=== PATIENT | female | born 1995 | race American Indian/Alaskan Native ===

== ENCOUNTER 2021-05-12 11:04 | Emergency (ER) | payer MEDICAID ==
--- NOTE | 2021-05-12 11:32 | Emergency Department Report ---
ED Female HPI - General Chief complaint: Abdominal Pain Stated complaint: ABD PAIN/12WKS PREG Time Seen by Provider: 05/12/21 11:21 Source: patient Mode of arrival: Ambulatory Limitations: No Limitations - History of Present Illness Initial comments: 26-year-old female with no significant past medical history presents to the hospital with her first reporting abdominal cramps and intermittent sharp right lower quadrant pain worsening last night. Pain moderate in intensity. Worse with palpation. No alleviating factors. Patient is 12 weeks based on LMP February 17 and has not received any imaging during this . She recently moved here from [place] and does not have a [facility] [employer]ATIONS [employer]IST doctor. She reports 1 day of vaginal bleeding noted only when wiping after urination sometime last week that has since resolved. She does not endorse dysuria, flank pain, or fever. Patient is currently taking vitamins - Related Data Previous Rx's Medication Instructions Recorded Last Taken Type Nitrofurantoin Alpine/M-Cryst 100 mg PO Q12HR #14 capsule 05/12/21 Unknown Rx [Macrobid CAP] Allergies Allergy/AdvReac Type Severity Reaction Status Date / Time No Known Allergies Allergy Verified 05/12/21 11:50 ED Review of Systems ROS: Stated complaint: ABD PAIN/12WKS PREG Other details as noted in HPI Comment: All other systems reviewed and negative ED Past Medical Hx - Past Medical History Previous Medical History?: No - Surgical History Past Surgical History?: No - Medications Home Medications: Home Medications Medication Instructions Recorded Confirmed Last Taken Type Nitrofurantoin Alpine/M-Cryst 100 mg PO Q12HR #14 capsule 05/12/21 Unknown Rx [Macrobid CAP] ED Physical Exam - General Limitations: No Limitations - Other Other exam information: General: No acute distress Head: Atraumatic Eyes: normal appearance ENT: Moist mucous membranes Neck: Normal appearance, no midline tenderness Chest: Clear to auscultation bilaterally CV: Regular rate and rhythm Abdomen: Soft, normal bowel sounds, right lower quadrant tenderness, nondistended, no rebound or guarding Back: Normal inspection Extremity: Normal inspection, full range of motion Neuro: Alert O x 3, no facial asymmetry, speech clear, no gross motor sensory deficit Psych: Appropriate behavior Skin: No rash ED Course Vital Signs 05/12/21 05/12/21 11:10 12:17 Temperature 98.5 F Pulse Rate 62 Respiratory 16 Rate Blood Pressure 103/68 O2 Sat by Pulse 100 100 Oximetry ED Medical Decision Making - Lab Data Result diagrams: 05/12/21 11:28 - Radiology Data Radiology results: report reviewed cc: JOE MARCUM MD . OB Ultrasound HISTORY: vag bleeding. 12 weeks preg by dates. TECHNIQUE: Grayscale and color imaging performed. COMPARISON: None FINDINGS: Uterus measures 11.6 x 8.2 x 8.4 cm with intrauterine gestation. Mean sac diameter is 5.4 cm corresponding with an EGA of 11 weeks and 2 days. [place]-rump length is 4.7 cm corresponding with an EGA of 11 weeks and 3 days. Clinical gestational age is reported at 12 weeks and 0 days. Heart rate is 166 bpm. Both ovaries appear normal. No pelvic free fluid. IMPRESSION: Single viable intrauterine gestation as above. - Medical Decision Making 26-year-old female approximately 12 weeks complaining of intermittent r ight lower quadrant pain with recent history of vaginal bleeding. Ultrasound confirms IUP with heart tones. Rh+ therefore RhoGam is not needed. Urine shows white cells with large number epithelial cells therefore likely contaminated however, given status will treat empirically. Outpatient follow-up with [facility] BUSINESS MANAGER provider - Differential Diagnosis Round ligament pain, appendicitis, ovarian cyst, ectopic Critical Care Time: No Critical care attestation.: If time is entered above; I have spent that time in minutes in the direct care of this critically ill patient, excluding procedure time. ED Disposition Clinical Impression: 11 weeks gestation of , Urine WBC increased, Threatened miscarriage Disposition: 01 HOME / SELF CARE / HOMELESS Is pt being admited?: No Does the pt Need Aspirin: No Condition: Stable Instructions: Abdominal Pain (ED), Vaginal Bleeding During , First Trimester, [id number], and Urinary Tract Infection Additional Instructions: Your ultrasound suggest that you are 11 weeks and 2-3 days . Take the medication as prescribed. Take Tylenol as needed for pain. Follow-up with your doctor or doctor/clinic provided. Return if symptoms worsen as indicated by your discharge instructions. Prescriptions: Nitrofurantoin Alpine/M-Cryst [Macrobid CAP] 100 mg PO Q12HR #14 capsule Referrals: RANDY MARTINS MD [Staff Physician] - 3-5 Days Time of Disposition: 12:52
[2021-05-12 11:42] LABS: Basophils # (Auto) 0.1 K/mm3 (0.0-0.1); Basophils % (Auto) 0.8 % (0.0-1.8); Eosinophils # (Auto) 0.1 K/mm3 (0.0-0.4); Eosinophils % (Auto) 1.5 % (0.0-4.3); Hematocrit 33.6 % (30.3-42.9); Hemoglobin 11.2 gm/dl (10.1-14.3); Lymphocytes # (Auto) 1.2 K/mm3 (1.2-5.4); Lymphocytes % (Auto) 18.4 % (13.4-35.0); Mean Corpuscular HGB Conc 34 % (30-34); Mean Corpuscular Volume 81 fl (79-97); Monocytes # (Auto) 0.4 K/mm3 (0.0-0.8); Monocytes % (Auto) 6.8 % (0.0-7.3); Platelet Count 220 K/mm3 (140-440); Red Blood Count 4.13 M/mm3 (3.65-5.03); Red Cell Distribution Width 19.2 % (13.2-15.2)
[2021-05-12 12:29] LABS: Bacteria,Urine 2+ /HPF (Negative); Mucus,Urine 2+ /HPF
--- NOTE | 2021-05-12 12:36 | Ultrasound Report ---
. OB Ultrasound HISTORY: vag bleeding. 12 weeks preg by dates. TECHNIQUE: Grayscale and color imaging performed. COMPARISON: None FINDINGS: Uterus measures 11.6 x 8.2 x 8.4 cm with intrauterine gestation. Mean sac diameter is 5.4 c m corresponding with an EGA of 11 weeks and 2 days. [place]-rump length is 4.7 cm corresponding with an EGA of 11 weeks and 3 days. Clinical gestational age is reported at 12 weeks and 0 days. Heart rate is 166 bpm. Both ovaries appear normal. No pelvic free fluid. IMPRESSION: Single viable intrauterine gestation as above. Signer Name: Marshal Mcnamara MD Signed: 05/12/2021 12:31 PM Workstation Name: [id number]
[2021-05-12 12:38] LABS: Color,Urine Yellow (Yellow)
[2021-05-12 12:39] LABS: Bilirubin,Urine Small (Negative); Blood,Urine Negative (Negative); Ictotest,Urine Negative (Negative)
[2021-05-12 13:04] VITALS: BP 110/67
== END 2021-05-12 13:04 | disposition home or self-care (01) ==
LOC: ED 11:04
DX: O20.0 Threatened abortion (principal); O26.891 Other specified pregnancy related conditions, first trimester; R82.998 Other abnormal findings in urine; Z3A.11 11 weeks gestation of pregnancy
CPT/HCPCS: 36415; 76801; 81001; 84702; 85025; 86850; 86900; 86901; 87086; 99284